=== PATIENT | female | born 1995 | race Caucasian/White ===

== ENCOUNTER → 2022-04-16 | Outpatient (CLI) | payer MEDICAID, SELFPAY ==
[2022-04-16 14:27] LABS: Hematocrit 34.7 % (37-47); Hemoglobin 11.6 g/dL (12.0-15.0); Mean Corp Hgb Conc 33.4 g/dL (32-36); Mean Corpuscular Hgb 31.7 pg (27.0-32.0); Mean Corpuscular Volume 94.8 fL (81-99); Platelet Count 243 K/mm3 (150-450); RBC Distribution Width CV 14.2 % (11.6-14.6); RBC Distribution Width SD 49.9 fl (35.1-43.9); Red Blood Count 3.66 M/mm3 (4.2-5.4); White Blood Count 10.9 K/mm3 (4.4-11.0)
[2022-04-16 14:54] LABS: Glucose Challenge Gest 1H 50g 182 mg/dL (70-140)
[2022-04-16 15:22] LABS: Syphilis Antibodies Non-reactive
== END | disposition home or self-care (01) ==
LOC: LAB 12:49
DX: Z34.93 Encounter for supervision of normal pregnancy, unspecified, third trimester (principal)
CPT/HCPCS: 36415; 82950; 85027; 86780

== ENCOUNTER → 2022-04-24 | Outpatient (CLI) | payer MEDICAID, SELFPAY ==
[2022-04-24 10:49] LABS: Glucose GTT-Gestation. Fasting 81 mg/dL (<105)
[2022-04-24 11:37] LABS: Glucose GTT-Gestational 1 Hr 212 mg/dL (<190)
[2022-04-24 13:02] LABS: Glucose GTT-Gestational 2 Hr 203 mg/dL (<165)
[2022-04-24 13:34] LABS: Glucose GTT-Gestational 3 Hr 110 L (<145)
== END | disposition home or self-care (01) ==
LOC: LAB 09:46
DX: Z34.90 Encounter for supervision of normal pregnancy, unspecified, unspecified trimester (principal); Z91.89 Other specified personal risk factors, not elsewhere classified
CPT/HCPCS: 36415; 82951; 82952

== ENCOUNTER → 2023-04-09 | Outpatient (CLI) | payer MEDICAID, SELFPAY ==
[2023-04-09 12:20] LABS: Absolute Lymphocyte Count 1.96 X10^3/uL (0.83-4.51); Absolute Neutrophil Count 2.4 X10^3/uL (2.0-7.7); Basophil# 0.03 X10^3/uL; Basophil% 0.6 % (0-1); Eosinophil# 0.07 X10^3/uL; Eosinophils% 1.4 % (0-5); Hematocrit 42.8 % (37-47); Hemoglobin 13.6 g/dL (12.0-15.0); Lymphocyte # 1.96 X10^3/ul (0.83-4.51); Lymphocyte % 40.6 % (19-41); Mean Corp Hgb Conc 31.8 g/dL (32-36); Mean Corpuscular Hgb 29.8 pg (27.0-32.0); Mean Corpuscular Volume 93.7 fL (81-99); Mean Platelet Vol. 9.7 fl (6.2-12.0); Monocyte% 8.3 % (0-10); NRBC Flagged by Analyzer 0 % (0-5); Neutrophil # 2.36 X10^3/uL (2.7-7.7); Neutrophil % 48.9 % (47-70); Platelet Count 270 K/mm3 (150-450); RBC Distribution Width CV 12.3 % (11.6-14.6); RBC Distribution Width SD 42.5 fl (35.1-43.9); Red Blood Count 4.57 M/mm3 (4.2-5.4); White Blood Count 4.8 K/mm3 (4.4-11.0)
[2023-04-09 12:41] LABS: ALB/GLOB Ratio 1.1 RATIO (0.9-2.4); AST(SGOT) 13 U/L (15-37); Alanine Aminotransfer ALT/SGPT 20 U/L (13-56); Albumin, Serum 3.9 g/dL (3.2-5.0); Alkaline Phosphatase 87 U/L (45-117); Anion Gap 6 (5-15); BUN 12 mg/dL (7-18); BUN/Creat Ratio 20.3 RATIO (10-20); Chloride 109 mmol/L (98-107); Cholesterol 158 mg/dL (200); Creatinine, Serum 0.59 mg/dL (0.55-1.02); EST Glomerular Filtration Rate 127 mL/min (>60); Est Glom Filt Rate - Afr Amer 154 mL/min (>60); Globulin 3.5 g/dL (2.2-4.2); Glucose 92 mg/dL (74-106); High Density Lipoprotein 60 mg/dL; Potassium 4.2 mmol/L (3.5-5.1); Protein, Total 7.4 g/dL (6.4-8.2); Sodium Level 139 mmol/L (136-145); Triglycerides 53 mg/dL; Very Low Density Lipoprotein 11 mg/dL (5-40)
== END | disposition home or self-care (01) ==
LOC: BIMLAB 09:09
PROVIDERS: PCP Internal Medicine; Referring Provider Internal Medicine; Visit Provider Internal Medicine
DX: Z00.00 Encounter for general adult medical examination without abnormal findings (principal)
CPT/HCPCS: 36415; 80053; 80061; 85025

== ENCOUNTER → 2024-02-11 | Outpatient (CLI) | payer MEDICAID, SELFPAY ==
[2024-02-13 13:08] LABS: Hepatitis B Core Ab Total Negative (Negative); QNTFERON TB Mitogen Value > 10.00 IU/mL (.); QNTFERON TB Nil Value 0.01 IU/mL (.); QNTFERON TB1+ Ag Value 0.01 IU/mL (.); QNTFERON TB2+ Ag Value 0.01 IU/mL (.); QNTIFERON TB Positive Criteria Negative (Negative)
== END | disposition home or self-care (01) ==
PROVIDERS: PCP Internal Medicine; Referring Provider Physician Assistant; Visit Provider Physician Assistant
DX: L40.0 Psoriasis vulgaris (principal)
CPT/HCPCS: 36415; 86480; 86704

== ENCOUNTER → 2024-04-08 | Outpatient (CLI) | payer MEDICAID, SELFPAY ==
[2024-04-08 11:22] LABS: Absolute Lymphocyte Count 1.88 X10^3/uL (0.83-4.51); Absolute Neutrophil Count 4.3 X10^3/uL (2.0-7.7); Basophil# 0.03 X10^3/uL; Basophil% 0.4 % (0-1); Eosinophil# 0.09 X10^3/uL; Eosinophils% 1.3 % (0-5); Hematocrit 40.9 % (37-47); Hemoglobin 13.1 g/dL (12.0-15.0); Lymphocyte # 1.88 X10^3/ul (0.83-4.51); Lymphocyte % 26.7 % (19-41); Mean Corpuscular Hgb 29.4 pg (27.0-32.0); Mean Corpuscular Volume 91.9 fL (81-99); Mean Platelet Vol. 9.4 fl (6.2-12.0); Monocyte# 0.71 X10^3/uL; Monocyte% 10.1 % (0-10); NRBC Flagged by Analyzer 0 % (0-5); Neutrophil # 4.31 X10^3/uL (2.7-7.7); Neutrophil % 61.4 % (47-70); Platelet Count 305 K/mm3 (150-450); RBC Distribution Width CV 11.9 % (11.6-14.6); RBC Distribution Width SD 39.8 fl (35.1-43.9); Red Blood Count 4.45 M/mm3 (4.2-5.4)
[2024-04-08 12:06] LABS: AST(SGOT) 15 U/L (15-37); Alanine Aminotransfer ALT/SGPT 17 U/L (13-56); Albumin, Serum 3.9 g/dL (3.2-5.0); Alkaline Phosphatase 78 U/L (45-117); Anion Gap 4 (5-15); BUN 9 mg/dL (7-18); BUN/Creat Ratio 13.4 RATIO (10-20); Calcium,Total 9.2 mg/dL (8.5-10.1); Chloride 108 mmol/L (98-107); Cholesterol 154 mg/dL (200); Creatinine, Serum 0.67 mg/dL (0.55-1.02); EST Glomerular Filtration Rate 109 mL/min (>60); Est Glom Filt Rate - Afr Amer 132 mL/min (>60); Glucose 103 mg/dL (74-106); High Density Lipoprotein 41 mg/dL; Potassium 4.1 mmol/L (3.5-5.1); Protein, Total 7.9 g/dL (6.4-8.2); Sodium Level 140 mmol/L (136-145); Triglycerides 51 mg/dL; Very Low Density Lipoprotein 10 mg/dL (5-40)
== END | disposition home or self-care (01) ==
LOC: BIMLAB 09:33
PROVIDERS: PCP Internal Medicine; Visit Provider Internal Medicine
DX: Z00.00 Encounter for general adult medical examination without abnormal findings (principal)
CPT/HCPCS: 36415; 80053; 80061; 85025

== ENCOUNTER 2024-08-10 16:33 | Observation (INO) | payer MEDICAID, SELFPAY ==
[2024-08-10 16:34] VITALS: BP 136/83; PULSE 84; RESP 18; TEMP 36.1; O2SAT 98; BMI 22.9
--- NOTE | 2024-08-10 16:45 | EX.ED.SAOD ---
HPI History of Present Illness Chief Complaint: Substance Abuse Detail of Chief Complaint: Requesting detox from alcohol Informant: patient Narrative Narrative: Patient presents to the emergency department with complaint of history of alcohol abuse and requesting detox from alcohol. Patient states that she is currently at a sober [facility] and failed her alcohol test and she was mandated to come in for rehab and then do another 30 days at an inpatient facility. Patient last used alcohol yesterday. She normally drinks about 4 double shots of fireball whiskey up to a pint and a half a day and she has been doing this since May. Smokes occasional marijuana denies any other illicit drug use. Currently feels a little nervous but otherwise has no complaints. [facility] Medical History History of substance abuse Anxiety Depression Toe pain, right Heart murmur Heart disease Anxiety and depression Drug abuse Seasonal allergies Alcohol abuse Psoriasis Encounter to establish care [facility] health care Ventricular septal defect Heart disease Anxiety and depression History of drug abuse Seasonal allergies History of alcohol abuse Home Medications ?Medication ?Instructions ?Recorded ?Last Taken ?Type triamcinolone acetonide 0.1 % applic topical 10/07/23 Unknown History topical cream adalimumab 40 mg/0.8 mL See Rx Instructions subcut .COMPLEX 04/06/24 Unknown History subcutaneous syringe kit (Humira) paroxetine HCl 20 mg tablet 20 mg PO DAILY #90 tabs 06/20/24 Unknown Rx trazodone 100 mg tablet 100 mg PO QHS PRN insomnia #30 tabs 07/07/24 Unknown Rx Allergy/AdvReac Type Severity Reaction Status Date / Time No Known Allergies Allergy Verified 08/10/24 16:34 Family History Father Anxiety Arthritis Autoimmune disease Diabetes Myocardial infarction Heart disease Depression Lung disease Suicide attempt Aunt Autoimmune disease Seizures Uncle CVA (cerebral vascular accident) Father Anxiety Arthritis Autoimmune disease Depression Diabetes Heart disease Myocardial infarction Respiratory disease Suicide attempt Aunt Breast cancer Seizures Skin cancer Grandfather Cancer Uncle CVA (cerebral vascular accident) Other Alcoholism Surgical History History of dental surgery History of dental surgery Social History Smoking Status: Unknown if ever smoked Electronic Cigarette Use: with nicotine alcohol intake: former substance use type: does not use and former substance user Date of last use: January of 2023 what type of physical activity do you participate in: none ROS ROS ED ROS Narrative Requesting detox from alcohol Review of Systems ROS Unobtainable: other Constitutional Constitutional ED: Reports lethargy; Denies chills, fever(s), sweats or weight loss Eyes Eyes: Denies blurry vision, change in vision or diplopia ENT ENT ED: Denies rhinorrhea or sore throat Cardiovascular Cardiovascular: Denies chest pain, orthopnea or racing heartbeat Respiratory/Chest Respiratory/Chest: Denies cough, dyspnea, dyspnea on exertion, orthopnea or sputum Gastrointestinal Gastrointestinal: Denies abdominal pain, diarrhea, nausea or vomiting Genitourinary Genitourinary ED: Denies dysuria, hematuria or urinary frequency Musculoskeletal Musculoskeletal: Denies arthralgias, back pain, myalgias or neck pain Integumentary Denies abscess, Abrasions or rash Neurologic Neurologic: Denies headache(s) or weakness Psychiatric Psychiatric: Denies anxiety, depression or suicidal thoughts Endocrine Endocrinology: Denies polydipsia, polyphagia or polyuria Hematologic/Lymphatic Hematologic/Lymphatic: Denies easy bleeding, easy bruising or lymphadenopathy Allergic/Immunologic Allergic/Immunologic ED: Denies mouth swelling, tongue swelling or urticaria EXAM Physical Exam Const Vital Signs: 08/10/24 16:34 Temperature 97 F L Temperature Source Temporal Pulse Rate 84 Respiratory Rate 18 Blood Pressure 136/83 H Blood Pressure Mean 100 Pulse Ox 98 Oxygen Delivery Method Room Air Positive well nourished and well developed General Appearance ED: well developed and NAD HEENT Reports TM's clear and moist mucous membranes normocephalic and atraumatic; Negative for trauma or tenderness Tympanic Membrane ED: Yes TM's clear Eyes PERRL and EOMs intact bilaterally General Eye ED: Negative for pale conjunctiva or scleral icterus Neck no lymphadenopathy, supple and no JVD General: Negative for tenderness Chest Wall inspection of chest normal and palpation of chest normal Chest: Negative for tenderness Resp normal respiratory effort and clear to auscultation bilaterally Effort and Inspection: Negative for respiratory distress or pain with movement Auscultation: Negative for rhonchi, wheezes or diminished lung sounds Cardio regular rate, regular rhythm, S1 normal heart sound, S2 normal heart sound and no murmurs Peripheral Pulses: pulses 2+ throughout GI normal to inspection, nondistended, normoactive bowel sounds, soft to palpation, non-tender, non-distended and no masses Back/Spine no CVA tenderness and no thoracic nor lumbar tenderness Extremity normal to inspection General Extremety ED: Negative for edema General Extremity: Negative for edema Neuro oriented x3, CN's II-XII intact bilaterally, no sensory deficits noted and gait normal Sensorium / Orientation: awake, alert, oriented to person, oriented to place and oriented to time Motor Exam: strength 5/5 throughout and strength abnormal Psych mental status grossly normal Skin no rashes or lesions noted and no wounds MDM MDM MDM Narrative Medical decision making narrative: Patient presents to the emergency department requesting detox from alcohol. Clinically looks well. CBC with differential obtained showed a white count 5.3 with hemoglobin 13.3 and platelet count of 243. Chemistries unremarkable other than a slightly depressed potassium of 3.0. She will receive 40 mEq of potassium chloride p.o. Alcohol was negative and hCG was negative. Will discuss case with hospitalist to evaluate patient for admission. Lab Data Attestation: I reviewed the patient's lab results. Labs: Laboratory Results - last 24 hr 08/10/24 16:53 WBC 5.3 RBC 4.39 Hgb 13.3 Hct 40.4 MCV 92.0 MCH 30.3 MCHC 32.9 RDW Std Deviation 43.0 RDW Coeff of Jeffrey 12.7 Plt Count 243 MPV 9.0 Immature Gran % (Auto) 0.200 Neut % (Auto) 43.4 L Lymph % (Auto) 44.4 H Clark % (Auto) 9.4 Eos % (Auto) 1.7 Baso % (Auto) 0.9 Absolute Neuts (auto) 2.3 Absolute Lymphs (auto) 2.37 Nucleated RBC % 0 Sodium 137 Potassium 3.0 L Chloride 107 Carbon Dioxide 23.0 Anion Gap 7 BUN 8 Creatinine 0.69 Estim Creat Clear Calc 94.29 Est GFR (MDRD) Af Amer 128 Est GFR (MDRD) Non-Af 106 BUN/Creatinine Ratio 11.6 Glucose 130 H Calcium 9.1 Total Bilirubin 0.60 AST 15 ALT 18 Alkaline Phosphatase 86 Total Protein 7.4 Albumin 3.9 Globulin 3.5 Albumin/Globulin Ratio 1.1 Serum , Qual NEGATIVE Ethyl Alcohol < 3.0 Discharge Plan Triage Chief Complaint: Substance Abuse ED Provider: Ungur,Remus Dx/Rx/DC Orders Clinical Impression: Alcohol abuse, Admitted to alcohol detoxification center Prescriptions: No Action triamcinolone acetonide 0.1 % cream topical Humira 40 mg/0.8 mL syringe kit See Rx Instructions subcut .COMPLEX Rx Instructions: inject one - 40 mg/0.8 mL syringe every 2 weeks subcut paroxetine HCl 20 mg tablet 20 mg PO DAILY Qty: 90 1RF trazodone 100 mg tablet 100 mg PO QHS PRN (Reason: insomnia) Qty: 30 1RF Primary Care Provider: Tomasa Hinojosa Referrals: Tomasa Hinojosa MD [Primary Care Provider] - Print Language: Bengali Disposition Disposition: Acute Care Hospital [facility]
[2024-08-10 17:02] LABS: Absolute Lymphocyte Count 2.37 X10^3/uL (0.83-4.51); Absolute Neutrophil Count 2.3 X10^3/uL (2.0-7.7); Basophil# 0.05 X10^3/uL; Basophil% 0.9 % (0-1); Eosinophil# 0.09 X10^3/uL; Eosinophils% 1.7 % (0-5); Hematocrit 40.4 % (37-47); Hemoglobin 13.3 g/dL (12.0-15.0); Lymphocyte # 2.37 X10^3/ul (0.83-4.51); Lymphocyte % 44.4 % (19-41); Mean Corp Hgb Conc 32.9 g/dL (32-36); Mean Corpuscular Hgb 30.3 pg (27.0-32.0); Monocyte% 9.4 % (0-10); NRBC Flagged by Analyzer 0 % (0-5); Neutrophil # 2.32 X10^3/uL (2.7-7.7); Neutrophil % 43.4 % (47-70); Platelet Count 243 K/mm3 (150-450); RBC Distribution Width CV 12.7 % (11.6-14.6); Red Blood Count 4.39 M/mm3 (4.2-5.4); White Blood Count 5.3 K/mm3 (4.4-11.0)
[2024-08-10 17:15] LABS: Alcohol, Blood (Medical)-Serum < 3.0 mg/dL; Internal QC Validated? YES +Cl - CLEAR BKGD; Pregnancy, Serum, hCG Quali. NEGATIVE Negative; Record Kit Lot#, Serum Preg. 772476
[2024-08-10 17:16] LABS: ALB/GLOB Ratio 1.1 RATIO (0.9-2.4); AST(SGOT) 15 U/L (15-37); Alanine Aminotransfer ALT/SGPT 18 U/L (13-56); Albumin, Serum 3.9 g/dL (3.2-5.0); Alkaline Phosphatase 86 U/L (45-117); Anion Gap 7 (5-15); BUN 8 mg/dL (7-18); BUN/Creat Ratio 11.6 RATIO (10-20); Calcium,Total 9.1 mg/dL (8.5-10.1); Chloride 107 mmol/L (98-107); Creatinine, Serum 0.69 mg/dL (0.55-1.02); EST Glomerular Filtration Rate 106 mL/min (>60); Est Glom Filt Rate - Afr Amer 128 mL/min (>60); Estimated Creatinine Clearance 94.29 ml/min; Globulin 3.5 g/dL (2.2-4.2); Glucose 130 mg/dL (74-106); Protein, Total 7.4 g/dL (6.4-8.2); Sodium Level 137 mmol/L (136-145)
[2024-08-10 17:32] VITALS: BP 131/78; PULSE 89; RESP 16; TEMP 36.6; O2SAT 98
[2024-08-10 18:00] VITALS: BP 133/82; PULSE 87; RESP 16; O2SAT 95
[2024-08-10 18:14] LABS: Amphetamine Urine VISTA NEGATIVE (<1000 ng/mL); Barbiturate Urine VISTA NEGATIVE (< 200 ng/mL); Benzodiazepine Urine VISTA NEGATIVE (< 200 ng/mL); Cocaine Urine VISTA NEGATIVE (< 300 ng/mL); Ecstacy Urine VISTA NEGATIVE (< 500 ng/mL); Methadone Urine VISTA NEGATIVE (< 300 ng/mL); PCP Urine VISTA NEGATIVE (< 25 ng/mL); THC Urine VISTA POSITIVE (< 50 ng/mL); Vista UDS pH Range 6
--- NOTE | 2024-08-10 18:16 | PCM.HP.STD ---
HPI - General General Date of Admission: 08/10/24 HPI Narrative SYLVIA BANUELOS, is a 28 F who presents to the hospital requesting detox from alcohol. Last use was yesterday and her blood alcohol today is less than 3 mg/dL. She states that she used to use meth but has not used it in 2 years and other than that she uses marijuana on occasion. She started drinking in May. In the ER her CIWA score is 0 however. It was requested I wanted that she be admitted for detox prior to being admitted for residential treatment. [facility] Medical History History of substance abuse Anxiety Depression Toe pain, right Heart murmur Heart disease Anxiety and depression Drug abuse Seasonal allergies Alcohol abuse Psoriasis Encounter to establish care [facility] health care Ventricular septal defect Heart disease Anxiety and depression History of drug abuse Seasonal allergies History of alcohol abuse Home Medications ?Medication ?Instructions ?Recorded ?Last Taken ?Type triamcinolone acetonide 0.1 % 1 applic topical DAILY PRN 10/07/23 Unknown History topical cream adalimumab 40 mg/0.8 mL See Rx Instructions subcut .COMPLEX 04/06/24 Unknown History subcutaneous syringe kit (Humira) paroxetine HCl 20 mg tablet 20 mg PO DAILY #90 tabs 06/20/24 Unknown Rx trazodone 100 mg tablet 100 mg PO QHS PRN insomnia #30 tabs 07/07/24 Unknown Rx medroxyprogesterone 150 mg/mL 150 mg IM .[id number] 08/10/24 Unknown History intramuscular syringe Allergy/AdvReac Type Severity Reaction Status Date / Time No Known Allergies Allergy Verified 08/10/24 16:34 Family History Father Anxiety Arthritis Autoimmune disease Diabetes Myocardial infarction Heart disease Depression Lung disease Suicide attempt Aunt Autoimmune disease Seizures Uncle CVA (cerebral vascular accident) Father Anxiety Arthritis Autoimmune disease Depression Diabetes Heart disease Myocardial infarction Respiratory disease Suicide attempt Aunt Breast cancer Seizures Skin cancer Grandfather Cancer Uncle CVA (cerebral vascular accident) Other Alcoholism Surgical History History of dental surgery History of dental surgery Social History Smoking Status: Unknown if ever smoked Electronic Cigarette Use: with nicotine alcohol intake: former substance use type: does not use and former substance user Date of last use: January of 2023 what type of physical activity do you participate in: none ROS Constitutional Constitutional: Denies chills, fatigue, fever(s) or malaise Eyes Eyes: Denies blurry vision ENT HEENT: Denies headache(s) or nasal discharge Cardiovascular Cardiovascular: Denies chest pain, dyspnea on exertion or syncope Respiratory/Chest Respiratory/Chest: Denies cough, shortness of breath at rest or shortness of breath with exertion Gastrointestinal Gastrointestinal: Reports diarrhea; Denies constipation, nausea or vomiting Genitourinary Genitourinary: Denies dysuria Neurologic Neurologic: Denies focal weakness, numbness or tremor(s) Psychiatric Psychiatric: Denies anxiety or depression Vital Signs Vital Signs Vital Signs: 08/10/24 16:34 08/10/24 17:32 Temperature 97 F L 97.8 F Temperature Source Temporal Temporal Pulse Rate 84 89 Respiratory Rate 18 16 Blood Pressure 136/83 H 131/78 H Blood Pressure Mean 100 95 Blood Pressure Source Monitor Blood Pressure Position Sitting Blood Pressure Location Right Arm Pulse Ox 98 98 Oxygen Delivery Method Room Air Room Air Weight Weight: 125 lb 7.088 oz Body Mass Index (BMI) 22.9 Physical Exam Narrative General: Alert, Oriented x3, Cooperative, No apparent distress HEENT: Atraumatic, PERRLA, EOMI, Normocephalic Oral: Moist Mucosa Neck: Supple, No JVD Lungs: Clear to auscultation, Normal air movement, No rhonchi, No wheeze, No rales Cardiovascular: Regular rate, Regular Rhythm, Normal S1, Normal S2, No murmurs Abdomen: Soft, Non Tender, Non-Distended, No Hepato-splenomegaly Extremities: No edema, Capillary Refill Less than 3 Seconds Skin: No rashes, No breakdown Musculoskeletal: No Tenderness to Palpation of Joints or Extremities Neurological: No focal neurological deficits, Motor Exam 5/5 strength throughout, Sensory exam intact to light touch and pain Psych/Mental Status: Normal Affect, Appropriate Results Lab / Micro Data 08/10/24 16:53 08/10/24 16:53 Labs: Laboratory Results - last 24 hr 08/10/24 16:53: WBC 5.3, RBC 4.39, Hgb 13.3, Hct 40.4, MCV 92.0, MCH 30.3, MCHC 32.9, RDW Std Deviation 43.0, RDW Coeff of Jeffrey 12.7, Plt Count 243, MPV 9.0, Immature Gran % (Auto) 0.200, Neut % (Auto) 43.4 L, Lymph % (Auto) 44.4 H, Bland % (Auto) 9.4, Eos % (Auto) 1.7, Baso % (Auto) 0.9, Absolute Neuts (auto) 2.3, Absolute Lymphs (auto) 2.37, Nucleated RBC % 0, Sodium 137, Potassium 3.0 L, Chloride 107, Carbon Dioxide 23.0, Anion Gap 7, BUN 8, Creatinine 0.69, Estim Creat Clear Calc 94.29, Est GFR (MDRD) Af Amer 128, Est GFR (MDRD) Non-Af 106, BUN/Creatinine Ratio 11.6, Glucose 130 H, Calcium 9.1, Total Bilirubin 0.60, AST 15, ALT 18, Alkaline Phosphatase 86, Total Protein 7.4, Albumin 3.9, Globulin 3.5, Albumin/Globulin Ratio 1.1, Serum , Qual NEGATIVE, Ethyl Alcohol < 3.0 08/10/24 17:35: Urine Opiates Screen NEGATIVE, Urine Methadone Screen NEGATIVE, Ur Barbiturates Screen NEGATIVE, Ur Phencyclidine Scrn NEGATIVE, Ur Amphetamines Screen NEGATIVE, MDMA (Ecstasy) Screen NEGATIVE, U Benzodiazepines Scrn NEGATIVE, Urine Cocaine Screen NEGATIVE, U Cannabinoids Screen POSITIVE H, Ur Drug Screen Comment Assessment & Plan Assessment/Plan (1) Admitted to alcohol detoxification center: (2) Alcohol abuse: PLAN: Plan 1. Requesting alcohol detox/tobacco abuse/anxiety/depression ? Continue with the alcohol withdrawal protocol ? Plan for inpatient rehab on discharge per 180 ? Continue with her Paxil ? She declined nicotine patch, discussed tobacco cessation 2. Psoriasis ? She just received her Humira injection DVT: Ambulation 60 minutes was spent on direct patient care, including documentation as well as chart review and collaboration with colleagues Charges/Coding Visit Charges Inpatient E&M: 00107 Init Hosp L2
[2024-08-10 19:00] VITALS: PULSE 87; RESP 16; O2SAT 98
[2024-08-10 19:05] VITALS: BP 122/81; PULSE 85; RESP 16; TEMP 36.6; O2SAT 99
[2024-08-10 19:56] VITALS: BP 116/76; PULSE 73; RESP 16; TEMP 36.7; O2SAT 99
[2024-08-10 20:05] VITALS: BMI 23.1
[2024-08-10] MEDS: Phenobarbital 32.4 MG Tablet 64.8 MG PO (20:31)
[2024-08-10] MEDS: Paroxetine 20 MG Tablet PO (22:27)
[2024-08-10] MEDS: traZODone 100 MG Tablet PO (22:27)
[2024-08-11] MEDS: Phenobarbital 32.4 MG Tablet 64.8 MG PO ×7 (00:55→23:58)
[2024-08-11 04:46] VITALS: BP 107/64; PULSE 68; RESP 14; TEMP 36.6; O2SAT 99
--- NOTE | 2024-08-11 07:45 | PN.HOSP_ITS ---
Reason for Visit Reason for Visit: Diagnoses Alcohol abuse, uncomplicated (08/10/24) Subjective Subjective Feeling well. Objective Data Objective Data Vital Signs: Vital Signs Temp Pulse Resp BP Pulse Ox O2 Del Method 36.6 C 68 14 107/64 99 Room Air 08/11/24 04:46 08/11/24 04:46 08/11/24 04:46 08/11/24 04:46 08/11/24 04:46 08/11/24 04:46 Oxygen Delivery Method Room Air Weight: 57.1 kg Body Mass Index (BMI) 23.1 Lab / Micro Data 08/10/24 16:53 08/10/24 16:53 Labs: Laboratory Results - last 24 hr 08/10/24 16:53: WBC 5.3, RBC 4.39, Hgb 13.3, Hct 40.4, MCV 92.0, MCH 30.3, MCHC 32.9, RDW Std Deviation 43.0, RDW Coeff of Jeffrey 12.7, Plt Count 243, MPV 9.0, Immature Gran % (Auto) 0.200, Neut % (Auto) 43.4 L, Lymph % (Auto) 44.4 H, Mccormick % (Auto) 9.4, Eos % (Auto) 1.7, Baso % (Auto) 0.9, Absolute Neuts (auto) 2.3, Absolute Lymphs (auto) 2.37, Nucleated RBC % 0, Sodium 137, Potassium 3.0 L, Chloride 107, Carbon Dioxide 23.0, Anion Gap 7, BUN 8, Creatinine 0.69, Estim Creat Clear Calc 94.29, Est GFR (MDRD) Af Amer 128, Est GFR (MDRD) Non-Af 106, BUN/Creatinine Ratio 11.6, Glucose 130 H, Calcium 9.1, Total Bilirubin 0.60, AST 15, ALT 18, Alkaline Phosphatase 86, Total Protein 7.4, Albumin 3.9, Globulin 3.5, Albumin/Globulin Ratio 1.1, Serum , Qual NEGATIVE, Ethyl Alcohol < 3.0 08/10/24 17:35: Urine Opiates Screen NEGATIVE, Urine Methadone Screen NEGATIVE, Ur Barbiturates Screen NEGATIVE, Ur Phencyclidine Scrn NEGATIVE, Ur Amphetamines Screen NEGATIVE, MDMA (Ecstasy) Screen NEGATIVE, U Benzodiazepines Scrn NEGATIVE, Urine Cocaine Screen NEGATIVE, U Cannabinoids Screen POSITIVE H, Ur Drug Screen Comment Physical Exam Const alert and no apparent distress HEENT head/scalp atraumatic and moist oral mucous membranes Assessment & Plan Assessment/Plan (1) Admitted to alcohol detoxification center: (2) Alcohol abuse: PLAN: Plan Alcohol withdrawal * On phenobarbital taper. Continue with thiamine folate. * Addiction medicine to see and to help facilitate outpatient programs * Patient to go into residential program on the . DVT: Low risk. Not indicated. Charges/Coding Visit Charges Inpatient E&M: 30596 Subs Hosp L1
[2024-08-11 08:25] VITALS: BP 104/61; PULSE 59; RESP 17; TEMP 36.7; O2SAT 100
[2024-08-11] MEDS: Folic Acid 1 MG Tablet PO (08:28)
[2024-08-11] MEDS: Thiamine Hydrochloride 100 MG Tablet PO (08:28)
[2024-08-11 14:08] VITALS: BP 107/57; PULSE 68; RESP 15; TEMP 36.8; O2SAT 100
[2024-08-11] MEDS: Paroxetine 20 MG Tablet PO (20:14)
[2024-08-11] MEDS: traZODone 100 MG Tablet PO (20:14)
[2024-08-11 20:18] VITALS: BP 125/79; PULSE 74; RESP 16; TEMP 36.3; O2SAT 100
[2024-08-12 00:08] VITALS: BP 112/68; PULSE 64; RESP 16; TEMP 36.4; O2SAT 99
[2024-08-12 04:00] VITALS: BP 111/68; PULSE 88; RESP 17; TEMP 36.9; O2SAT 100
[2024-08-12] MEDS: Phenobarbital 32.4 MG Tablet 64.8 MG PO ×2 (04:32→09:29)
--- NOTE | 2024-08-12 08:41 | DS.PCM_ITS ---
Providers Date of Admission: 08/10/24 Primary Care Physician: Dr. Tomasa Hinojosa MD Reason For Visit: ETOH Detox Diagnosis Discharge Diagnosis (1) Admitted to alcohol detoxification center: Status: Acute (2) Alcohol abuse: Status: Acute Code(s): F10.10 - Alcohol abuse, uncomplicated Plan Alcohol withdrawal * On phenobarbital taper. Continue with thiamine folate. * Addiction medicine to see and to help facilitate outpatient programs * Patient to go into residential program on the . DVT: Low risk. Not indicated. Medications at Discharge Home Medications triamcinolone acetonide 0.1 % topical cream 1 applic topical DAILY PRN 10/07/23 adalimumab 40 mg/0.8 mL subcutaneous syringe kit (Humira) See Rx Instructions subcut .COMPLEX psoriasis 04/06/24 paroxetine HCl 20 mg tablet 20 mg PO DAILY #90 tabs 06/20/24 trazodone 100 mg tablet 100 mg PO QHS PRN insomnia #30 tabs 07/07/24 medroxyprogesterone 150 mg/mL intramuscular syringe 150 mg IM .[id number] control 08/10/24 multivitamin 1 tab PO DAILY #30 tabs 08/12/24 Hospital Course Operations None Procedures None Summary of Care Provided Hospital Course: Patient presents for acute alcohol withdrawal. Patient was started on phenobarbital without any issues. Patient to be discharged to residential program in stable condition. Physical Exam Const alert and no apparent distress Constitutional Narrative: Lying in bed. Nontoxic. Afebrile. Weight / BMI Weight Weight: 57.1 kg Body Mass Index (BMI) 23.1 ABG / Lab / Microbiology Data 08/10/24 16:53 08/10/24 16:53 D/C Instructions Discharge Diet: No restrictions Meaningful Use Info Meaningful Use Meaningful Use Diagnoses (Choose all that apply): None applicable Ischemic Stroke Statin Dosing Therapy Reference: STATIN DOSE THERAPY REFERENCE: * Patients > 75 years receive moderate or high dose statin therapy. * Patients 75 years or YOUNGER should receive HIGH intensity statin dose unless contraindicated. You will be required to document reason for non-treatment if statin daily dose does not meet guidelines. HIGH DOSE STATIN THERAPY DAILY Atorvastatin > than or = to 40 mg Rosuvastatin > than or = to 20 mg Amlodipine + Atorvastatin > than or = to 2.5/40 mg Ezetimibe + Simvastatin 10/80 mg Simvastatin 80mg Discharge Plan Admission Admit Date/Time: 08/10/24 17:56 Primary Reason for Your Visit: Alcohol withdrawal Attending Provider: Michael Ferreira Primary Care Provider: Tomasa Hinojosa Consulting Providers: Robbie Torres Discharge Orders/Prescriptions Prescriptions: New multivitamin Tablet 1 tab PO DAILY Qty: 30 0RF Continued triamcinolone acetonide 0.1 % cream 1 applic topical DAILY PRN Humira 40 mg/0.8 mL syringe kit See Rx Instructions subcut .COMPLEX Rx Instructions: inject one - 40 mg/0.8 mL syringe every 2 weeks subcut paroxetine HCl 20 mg tablet 20 mg PO DAILY Qty: 90 1RF medroxyprogesterone 150 mg/mL syringe 150 mg IM .[id number] trazodone 100 mg tablet 100 mg PO QHS PRN (Reason: insomnia) Qty: 30 1RF Referrals / Follow Up: Tomasa Hinojosa MD [Primary Care Provider] - Disposition Disposition (needs filled in before D/C Order can be placed): Home, Self Care Charges/Coding Visit Charges Inpatient E&M: 85237 Disch Hosp
[2024-08-12] MEDS: Thiamine Hydrochloride 100 MG Tablet PO (09:29)
[2024-08-12 09:30] VITALS: BP 104/58; PULSE 76; RESP 14; TEMP 37.1; O2SAT 98
[2024-08-12] MEDS: Folic Acid 1 MG Tablet PO (09:30)
--- NOTE | 2024-08-12 10:16 | PHA.DC.MR.R ---
Pharmacy [place] Med Reconciliation Pharmacy Service has performed discharge medication reconciliation for this patient. The patient's discharge medication list was reviewed for discrepancies and discrepancies were resolved. Medications at Discharge Home Medications triamcinolone acetonide 0.1 % topical cream 1 applic topical DAILY PRN 10/07/23 adalimumab 40 mg/0.8 mL subcutaneous syringe kit (Humira) See Rx Instructions subcut .COMPLEX psoriasis 04/06/24 paroxetine HCl 20 mg tablet 20 mg PO DAILY #90 tabs 06/20/24 trazodone 100 mg tablet 100 mg PO QHS PRN insomnia #30 tabs 07/07/24 medroxyprogesterone 150 mg/mL intramuscular syringe 150 mg IM .[id number] control 08/10/24 multivitamin 1 tab PO DAILY #30 tabs 08/12/24
== END 2024-08-12 11:12 | disposition home or self-care (01) ==
LOC: ED 17:27 → MS3 08-11 06:52
PROVIDERS: Admitting Provider Family Medicine; Emergency Provider Emergency Medicine; PCP Internal Medicine
DX: F10.139 Alcohol abuse with withdrawal, unspecified (principal); L40.9 Psoriasis, unspecified; F17.290 Nicotine dependence, other tobacco product, uncomplicated; Z79.899 Other long term (current) drug therapy; F41.9 Anxiety disorder, unspecified; F32.A Depression, unspecified
CPT/HCPCS: 80053; 80307; 82077; 84703; 85025; 99221; 99284; 99406; A4216; G0378

== ENCOUNTER 2024-11-04 17:20 | Emergency (ER) | payer MEDICAID, SELFPAY ==
[2024-11-04 17:20] VITALS: BP 153/82; PULSE 102; RESP 16; TEMP 36.6; O2SAT 100; BMI 23.1
--- NOTE | 2024-11-04 18:24 | CT_ITS ---
EXAM: CT HEAD WITHOUT INTRAVENOUS CONTRAST CLINICAL INDICATION: injury TECHNIQUE: Multiple axial images were obtained of the head without intravenous contrast. This CT exam was performed using one or more of the following dose reduction techniques: automated exposure control, adjustment of the mA and/or kV according to patient size, and/or use of iterative reconstruction technique. RADIATION DOSE: CTDIvol = 44.99 mGy, DLP = 762.36 mGy-cm COMPARISON: No relevant prior studies available. FINDINGS: BRAIN AND EXTRA-AXIAL SPACES: Unremarkable. No intra- or extra-axial hemorrhage. No evidence of acute infarct. No intracranial mass or mass effect. There is preservation of the pleitez/white matter interface. Posterior fossa structures are unremarkable. Ventricles are appropriate for age. No hydrocephalus. Basal cisterns are patent. BONES/JOINTS: Unremarkable. No discrete lytic or blastic abnormalities. SINUSES: Unremarkable as visualized. Clear. MASTOID AIR CELLS: Unremarkable. Clear. ORBITS: Visualized globes, extraocular muscles, optic nerves and retrobulbar fat appear unremarkable. CT/Brain/Head without Contrast IMPRESSION: Negative head/brain CT without intravenous contrast. Electronically Signed: Smiley Starr MD at 19:06 EST ,
--- NOTE | 2024-11-04 19:23 | CT_ITS ---
EXAM: CT MAXILLOFACIAL WITHOUT INTRAVENOUS CONTRAST CLINICAL INDICATION: jaw injury TECHNIQUE: Helically acquired images were obtained of the face without intravenous contrast. This CT exam was performed using one or more of the following dose reduction techniques: automated exposure control, adjustment of the mA and/or kV according to patient size, and/or use of iterative reconstruction technique. RADIATION DOSE: CTDIvol = 29.38 mGy, DLP = 562.15 mGy-cm COMPARISON: No relevant prior studies available. FINDINGS: BONES/JOINTS: Unremarkable. No discrete lytic or blastic abnormalities. No mandible, maxillary or other fracture. SOFT TISSUES: Unremarkable. No focal subcutaneous swelling. No discrete fluid collections. ORBITS: Unremarkable. Both globes are unremarkable. Extraocular muscles are normal. Retrobulbar fat appears unremarkable. SINUSES: Unremarkable as visualized. Clear. MASTOID AIR CELLS: Unremarkable as visualized. Clear. DENTAL: There is periapical lucency around multiple teeth in the maxilla, with multiple root canals. CT/Sinus/Facial Bone IMPRESSION: No acute findings in the face. Electronically Signed: Smiley Starr MD at 20:26 EST ,
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
[2024-11-04 19:31] VITALS: BP 119/78; PULSE 81; RESP 16; O2SAT 99
[2024-11-04] MEDS: Acetaminophen 500 MG Tablet 1000 MG PO (19:33)
--- NOTE | 2024-11-04 20:45 | ED.RN ---
Pt assessed in triage by MD, discharged from triage. Ambulated out of dept without difficulty.
== END 2024-11-04 20:46 | disposition home or self-care (01) ==
PROVIDERS: Emergency Provider Emergency Medicine; PCP Internal Medicine; Visit Provider Emergency Medicine
DX: S06.0X0A Concussion without loss of consciousness, initial encounter (principal); S00.83XA Contusion of other part of head, initial encounter; Y04.8XXA Assault by other bodily force, initial encounter; F17.210 Nicotine dependence, cigarettes, uncomplicated; R68.84 Jaw pain
CPT/HCPCS: 70450; 70486; 99282